=== PATIENT | female | born 2000 | race Two or more races ===

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

== ENCOUNTER 2022-06-07 21:01 | Emergency (ER) | payer OTHER ==
[~2022-06-07] VITALS: Ht 165.1 cm; Wt 72.7 kg
[~2022-06-07 21:01] MED LIST: NITR100C6 PO
[2022-06-07] MEDS ORDERED: HYDROcodone-ACET 10/325MG TAB PO ONE (21:45)
[2022-06-07 22:20] LABS: Urine Bacteria NONE SEEN /hpf (None Seen); Urine Blood 1+ /uL (Negative); Urine Mucus FEW (None Seen); Urine Specific Gravity 1.027 (1.001-1.035); Urine WBC 19 /hpf (0 - 5)
[2022-06-07 22:30] LABS: Basophils # (auto) 0 10 ^3/uL (0-0.2); Basophils % (auto) 0.6 % (0.0-2.0); Eosinophils # (auto) 0.1 10 ^3/uL (0-0.8); Eosinophils % (auto) 2.9 % (0.0-7.0); Hematocrit 40.7 % (36.0-46.0); Hemoglobin 13.8 g/dL (12.2-16.2); Lymphocytes # (auto) 0.8 10 ^3/uL (0.4-5.4); Lymphocytes % (auto) 17.6 % (10.0-50.0); Mean Corpuscular Hemoglobin 31.5 pg (28.0-32.0); Mean Corpuscular Hgb Conc. 33.9 g/dL (32.0-36.0); Mean Corpuscular Volume 92.9 fL (80.0-100.0); Monocytes # (auto) 0.5 10 ^3/uL (0-1.3); Monocytes % (auto) 10.4 % (0.0-12.0); Neutrophils # (auto) 3.3 10 ^3/uL (1.6-8.6); Neutrophils % (auto) 68.5 % (37.0-80.0); Nucleated Red Blood Cells % 0.1 %; Red Blood Cells 4.38 10^6/uL (4.0-5.20); Red Cell Distribution Width 12.9 % (11.8-14.3); White Blood Cell 4.8 10^3/uL (4.4-10.8)
[2022-06-07 22:47] LABS: Albumin 3.7 g/dL (3.4-5.0); BUN/Creatinine Ratio 9.8 (10.0-20.0); Potassium 3.9 mmol/L (3.5-5.1)
[2022-06-07 22:50] LABS: Bilirubin, Total 2.1 mg/dL (0.2-1.0); Total Protein 8.2 g/dL (6.4-8.2)
[2022-06-07] MEDS ORDERED: ONDA-144 PO ×2 (23:18)
[2022-06-07] MEDS ORDERED: NITR-87 PO ×2 (23:18)
[2022-06-07] MEDS ORDERED: HYDR-4902 PO ×2 (23:18)
[2022-06-08 00:41] VITALS: BP 117/71
[2022-06-08] MEDS ORDERED: NITR-87 PO (00:46)
[2022-06-08] MEDS ORDERED: HYDR-4902 PO (00:46)
[2022-06-08] MEDS ORDERED: ONDA-144 PO (00:46)
== END 2022-06-08 00:43 | disposition home or self-care (01) ==
LOC: ER 21:01
DX: N39.0 Urinary tract infection, site not specified (principal); K76.0 Fatty (change of) liver, not elsewhere classified; K80.20 Calculus of gallbladder without cholecystitis without obstruction; Z32.02 Encounter for pregnancy test, result negative
CPT/HCPCS: 36415; 76705; 80053; 81001; 81025; 83690; 85025

== ENCOUNTER 2022-07-27 18:16 | Emergency (ER) | payer OTHER ==
[~2022-07-27] VITALS: Ht 165.1 cm; Wt 66.4 kg
[~2022-07-27 18:16] MED LIST changes: +HYDR-4902 PO; +NITR-87 PO; +ONDA-144 PO
[2022-07-27 20:37] LABS: Albumin 4.4 g/dL (3.4-5.0); Basophils # (auto) 0 10 ^3/uL (0-0.2); Basophils % (auto) 0.3 % (0.0-2.0); Calcium 8.6 mg/dL (8.5-10.1); Eosinophils # (auto) 0.1 10 ^3/uL (0-0.8); Eosinophils % (auto) 0.8 % (0.0-7.0); Hematocrit 39.4 % (36.0-46.0); Hemoglobin 13.9 g/dL (12.2-16.2); Lymphocytes # (auto) 0.9 10 ^3/uL (0.4-5.4); Lymphocytes % (auto) 11.1 % (10.0-50.0); Mean Corpuscular Hemoglobin 32.1 pg (28.0-32.0); Mean Corpuscular Hgb Conc. 35.4 g/dL (32.0-36.0); Mean Corpuscular Volume 90.7 fL (80.0-100.0); Monocytes # (auto) 0.5 10 ^3/uL (0-1.3); Monocytes % (auto) 5.6 % (0.0-12.0); Neutrophils # (auto) 6.9 10 ^3/uL (1.6-8.6); Neutrophils % (auto) 82.2 % (37.0-80.0); Nucleated Red Blood Cells % 0.1 %; Potassium 3.7 mmol/L (3.5-5.1); Red Blood Cells 4.35 10^6/uL (4.0-5.20); Red Cell Distribution Width 12.5 % (11.8-14.3); White Blood Cell 8.4 10^3/uL (4.4-10.8)
[2022-07-27 20:40] LABS: BUN/Creatinine Ratio 9.1 (10.0-20.0); Bilirubin, Total 1.3 mg/dL (0.2-1.0); Total Protein 8.1 g/dL (6.4-8.2)
[2022-07-28 00:48] LABS: Urine Bacteria NONE SEEN /hpf (None Seen); Urine Blood Negative /uL (Negative); Urine Mucus MANY (None Seen); Urine Specific Gravity 1.031 (1.001-1.035); Urine WBC 7 /hpf (0 - 5)
[2022-07-28] MEDS ORDERED: MORPHINE SULFATE INJ 2 MG/ml SYRG IM ONE (01:15)
[2022-07-28] MEDS ORDERED: ONDANSETRON ODT 4 MG TAB PO ONE (01:15)
[2022-07-28] MEDS ORDERED: CYCL-839 PO (01:22)
[2022-07-28] MEDS ORDERED: FAMO20TA10 PO (01:22)
[2022-07-28] MEDS ORDERED: DOCU-94 PO (01:22)
[2022-07-28] MEDS ORDERED: CEPH500T PO (01:22)
[2022-07-28] MEDS ORDERED: ZOFR4T PO (01:22)
[2022-07-28 02:10] VITALS: BP 119/75
== END 2022-07-28 02:12 | disposition home or self-care (01) ==
LOC: ER 18:18
DX: S46.911A Strain of unspecified muscle, fascia and tendon at shoulder and upper arm level, right arm, initial encounter (principal); N39.0 Urinary tract infection, site not specified; K59.00 Constipation, unspecified; Z32.02 Encounter for pregnancy test, result negative; X58.XXXA Exposure to other specified factors, initial encounter; Y93.89 Activity, other specified; Y92.89 Other specified places as the place of occurrence of the external cause; Y99.8 Other external cause status
CPT/HCPCS: 36415; 74176; 80053; 81001; 81025; 82150; 83690; 85025; 96372; 99284; J2270; Q0162

== ENCOUNTER 2022-09-18 12:30 | Emergency (ER) | payer OTHER ==
[~2022-09-18] VITALS: Ht 165.1 cm; Wt 64.3 kg
[~2022-09-18 12:30] MED LIST changes: +CEPH500T PO; +CYCL-839 PO; +DOCU-94 PO; +ZOFR4T PO
[2022-09-18 12:41] VITALS: BP 116/62; PULSE 120; RESP 18; O2SAT 98
[2022-09-18] MEDS ORDERED: LIDO5CRE14 EX (15:17)
[2022-09-18] MEDS ORDERED: VALA500T33 PO (15:17)
[2022-09-18] MEDS ORDERED: BACDST PO (15:17)
[2022-09-19 06:17] LABS: RPR Non Reactive (Non Reactive)
== END 2022-09-18 15:25 | disposition home or self-care (01) ==
LOC: ER 12:30
DX: Z20.2 Contact with and (suspected) exposure to infections with a predominantly sexual mode of transmission (principal); R10.2 Pelvic and perineal pain; R21 Rash and other nonspecific skin eruption; Z90.89 Acquired absence of other organs; Z79.899 Other long term (current) drug therapy
CPT/HCPCS: 81002; 81025; 86592; 86703